=== PATIENT | female | born 1970 | race Caucasian/White ===

== ENCOUNTER 2022-04-10 04:09 | Inpatient (IN) | payer OTHER ==
[2022-04-09 13:54] VITALS: BMI 35.4
[2022-04-10] MEDS ORDERED: CEFAZOLIN 2 GM in DEXTROSE 5%-WATER - 100 ML IVPB ONE (07:30)
[2022-04-10] MEDS ORDERED: PHENAZOPYRIDINE HCL 100 MG TABLET (FP) PO ONE (07:30)
[2022-04-10] MEDS ORDERED: TRANEXAMIC ACID 1000 MG/10 ML VIAL IVPUSH ONE (07:30)
[2022-04-10] MEDS ORDERED: GABAPENTIN 300 MG CAPSULE PO ONE (07:30)
[2022-04-10] MEDS ORDERED: ceFAZolin SODIUM 1 GM VIAL ONE (08:00)
[2022-04-10] MEDS ORDERED: PROPOFOL 40 ML ONE (09:07)
[2022-04-10] MEDS ORDERED: MIDAZOLAM HCL 2 MG/2 ML SINGLE DOSE VIAL ONE ×2 (09:07→09:09)
[2022-04-10] MEDS ORDERED: BUPIVACAINE HCL/PF 0.5% (5MG/ML) 10 ML VIAL ONE (09:08)
[2022-04-10] MEDS ORDERED: BUPIVACAINE LIPOSOME/PF (EXPAREL) 266 MG/20 ML VIAL ONE (09:08)
[2022-04-10] MEDS ORDERED: LIDOCAINE HCL/PF 2% SDV 5ML VIAL ONE (09:40)
[2022-04-10] MEDS ORDERED: ceFAZolin SODIUM 1 GM VIAL IVPB ONE (09:45)
[2022-04-10] MEDS ORDERED: ONDANSETRON 4 MG/2 ML VIAL IVPUSH PRN ×2 (09:50→12:11)
[2022-04-10] MEDS ORDERED: oxyCODONE HCL 5 MG TABLET PO PRN ×2 (09:51)
[2022-04-10] MEDS ORDERED: ACETAMINOPHEN 1000 MG/100 ML BAG IVPB ONE (09:51)
[2022-04-10] MEDS ORDERED: LACTATED RINGERS SOLUTION 1,000 ML IV SCH (10:00)
[2022-04-10] MEDS ORDERED: KETOROLAC TROMETHAMINE 30 MG/1 ML VIAL IVPUSH SCH (10:00)
[2022-04-10] MEDS ORDERED: ACETAMINOPHEN 500 MG TABLET (FP) PO SCH (10:00)
[2022-04-10] MEDS ORDERED: ROCURONIUM BROMIDE 50 MG/5 ML SYRINGE ONE (10:03)
[2022-04-10] MEDS ORDERED: ONDANSETRON 4 MG/2 ML VIAL ONE (10:37)
[2022-04-10] MEDS ORDERED: DEXAMETHASONE SOD PHOSPHATE 4 MG/1 ML VIAL ONE (10:37)
[2022-04-10] MEDS ORDERED: ACETAMINOPHEN INJECTION 100 ML IVPB ONE (12:07)
[2022-04-10] MEDS ORDERED: KETOROLAC TROMETHAMINE 30 MG/1 ML VIAL ONE (12:07)
[2022-04-10] MEDS ORDERED: ACETAMINOPHEN 1000 MG/100 ML BAG IVPB PRN ×2 (12:11→15:17)
[2022-04-10] MEDS ORDERED: SIMETHICONE 80 MG TAB.CHEW (FP) PO PRN (12:11)
[2022-04-10] MEDS ORDERED: ACETAMINOPHEN 325 MG TABLET (FP) PO PRN (12:11)
[2022-04-10] MEDS ORDERED: BISACODYL 5 MG TABLET.DR (FP) PO PRN (12:11)
[2022-04-10] MEDS ORDERED: DOCUSATE SODIUM 100 MG CAPSULE (FP) PO PRN (12:11)
[2022-04-10] MEDS ORDERED: ZOLPIDEM TARTRATE 5 MG TABLET PO PRN (12:11)
[2022-04-10] MEDS: KETOROLAC TROMETHAMINE 30 MG/1 ML VIAL IVPUSH SCH ×2 (12:15→19:00)
[2022-04-10] MEDS: LACTATED RINGERS SOLUTION 1,000 ML/1,000 ML INFUS.BAG IV SCH (13:30)
[2022-04-10] MEDS: ACETAMINOPHEN 1000 MG/100 ML BAG IVPB SCH (17:26)
[2022-04-10] MEDS: oxyCODONE HCL 10 MG SUSTAINED ACTING TABLET PO SCH (22:46)
[2022-04-11] MEDS: ACETAMINOPHEN 1000 MG/100 ML BAG IVPB SCH ×3 (00:33→11:43)
[2022-04-11] MEDS: KETOROLAC TROMETHAMINE 30 MG/1 ML VIAL IVPUSH SCH ×5 (01:20→23:57)
[2022-04-11 05:34] VITALS: RESP 18
[2022-04-11 09:30] LABS: HEMOGLOBIN 11.7 GM/dL (10.7-15.3); MCH 28.8 pg (25.7-33.7); MCHC 33.4 g/dl (32.0-36.0); MEAN CELL VOLUME 86.1 fl (80-96); MEAN PLT VOLUME 7.4 fl (7.5-11.1); PLATELET COUNT 255 10^3/uL (134-434); RBC 4.06 M/mm3 (3.60-5.2); RDW 14.1 % (11.6-15.6); WHITE BLOOD COUNT 6.9 K/mm3 (4.0-10.0)
[2022-04-11] MEDS: oxyCODONE HCL 10 MG SUSTAINED ACTING TABLET PO SCH ×2 (10:39→21:26)
[2022-04-11] MEDS: LACTATED RINGERS SOLUTION 1,000 ML/1,000 ML INFUS.BAG IV SCH (14:59)
[2022-04-12 05:41] VITALS: BP 114/63; PULSE 59; TEMP 98.6
[2022-04-12] MEDS: KETOROLAC TROMETHAMINE 30 MG/1 ML VIAL IVPUSH SCH (06:47)
[2022-04-12] MEDS: oxyCODONE HCL 10 MG SUSTAINED ACTING TABLET PO SCH (09:30)
== END 2022-04-12 13:48 | disposition home or self-care (01) | DRG 743 ==
LOC: J2C 04:09 → J6S 13:43
PROVIDERS: ADMIT Obstetrics & Gynecology; ATTEND Obstetrics & Gynecology
PROC: 0UT70ZZ Resection of Bilateral Fallopian Tubes, Open Approach (ICD-10-PCS; 2022-04-10)
PROC: 0UT90ZZ Resection of Uterus, Open Approach (ICD-10-PCS; principal; 2022-04-10 09:00)
DX: D25.9 Leiomyoma of uterus, unspecified (principal); R10.2 Pelvic and perineal pain; N93.9 Abnormal uterine and vaginal bleeding, unspecified; N72 Inflammatory disease of cervix uteri; N84.0 Polyp of corpus uteri
CPT/HCPCS: 36415; 81025; 85027; 86850; 86900; 86901; 88305-TC; 88307-TC; 94010; 94760